=== PATIENT | female | born 1955 | race Hispanic/Latino ===

== ENCOUNTER 2016-04-21 14:38 | Outpatient (CLI) | payer BC ==
--- NOTE | 2016-04-08 14:17 | Mammography Report ---
BILATERAL DIGITAL SCREENING MAMMOGRAM with CAD: 04/07/16 09:15:00 CLINICAL: Routine screening. COMPARISON:09/24/14 FINDINGS: The breasts are heterogeneously dense, which may obscure small masses. An increased number of right circumscribed densities compared to the prior exam which require additional imaging. A left upper asymmetry requires additional imaging.No suspicious calcifications. IMPRESSION: Bilateral asymmetries requiring further workup. BI-RADS CATEGORY: 0 -- Additional Imaging Evaluation Required RECOMMENDATION: Recall for a left spot compression MLO view, left breast ultrasound if needed and right breast ultrasound. ACR BI-RADS MAMMOGRAPHIC CODES: 0 = Needs additional imaging evaluation; 1 = Negative; 2 = Benign; 3 = Probably benign; 4 = Suspicious; 5 = Malignant; 6 = Known biopsy-proven malignancy COMMENT: 1. Dense breast tissue, i.e., adenosis, fibrocystic changes, etc., may obscure an underlying neoplasm. 2. Approximately 10% of cancers are not detected with mammography. 3. A negative mammography report should not delay biopsy if a clinically suspicious mass is present. COMMENT: Patient follow-up letters are generated via our [employer] application.
--- NOTE | 2016-04-22 08:19 | Mammography Report ---
LEFT DIGITAL DIAGNOSTIC MAMMOGRAM and BILATERAL BREAST ULTRASOUND: 04/21/16 14:38:00 CLINICAL: Recall to evaluate asymmetries. COMPARISON:04/07/16 screening mammogram. FINDINGS: A lateralmedial and spot compression MLO view demonstrate satisfactory effacement of the previously described asymmetry. Ultrasound of the left breast (including all four quadrants and the retroareolar area) was performed and demonstrated a central retroareolar complex cyst versus solid mass which correlates with the mammographic asymmetry. It measures 1.4 x 0.9 x 1.4 cm. A benign bilobed cyst at 11 o'clock subareolar measures 1.4 x 0.5 x 1.3 cm and a benign subareolar cyst at 3 o'clock measures 1.8 x 0.8 x 1.7 cm. Ultrasound of the right breast (including all four quadrants and the retroareolar area) was performed and demonstrated too numerous to count benign cysts. A cyst at 9 o'clock 4 cm from the nipple measures 2.0 x 1.2 x 2.3 cm. A cyst at 12 o'clock 3 cm from the nipple measures 0.8 x 0.5-0.7 cm. A subareolar cyst at 11 o'clock measures 2.4 x 0.9 x 2.7 cm. No solid mass or shadowing of the right breast. IMPRESSION: Benign cysts of the right breast and a left retroareolar complex cyst versus solid mass. Recommend ultrasound guided left aspiration/biopsy. BI-RADS CATEGORY: 4A--Mildly Suspicious ACR BI-RADS MAMMOGRAPHIC CODES: 0 = Needs additional imaging evaluation; 1 = Negative; 2 = Benign; 3 = Probably benign; 4 = Suspicious; 5 = Malignant; 6 = Known biopsy-proven malignancy COMMENT: 1. Dense breast tissue, i.e., adenosis, fibrocystic changes, etc., may obscure an underlying neoplasm. 2. Approximately 10% of cancers are not detected with mammography. 3. A negative mammography report should not delay biopsy if a clinically suspicious mass is present. COMMENT: Patient follow-up letters are generated by our [employer] application.
== END 2016-04-21 14:39 | disposition home or self-care (01) ==
LOC: SPVWC 14:38
DX: Z12.31 Encounter for screening mammogram for malignant neoplasm of breast (principal); N60.01 Solitary cyst of right breast; N60.02 Solitary cyst of left breast
CPT/HCPCS: 76641; G0202; G0206; 77067

== ENCOUNTER 2016-05-05 08:40 | Outpatient (CLI) | payer BC ==
--- NOTE | 2016-05-05 10:28 | Mammography Report ---
LEFT DIGITAL DIAGNOSTIC MAMMOGRAM: 05/05/16 08:40:00 CLINICAL: For clip placement immediately status post aspiration of a complex cyst. COMPARISON:04/21/16 FINDINGS: A biopsy clip is now identified on both views and correlates with the location of the aspirated cyst. IMPRESSION: Concordant clip placement status post cyst aspiration .
--- NOTE | 2016-05-05 10:58 | Ultrasound Report ---
ULTRASOUND GUIDED ASPIRATION WITH CLIP PLACEMENT LEFT BREAST: 05/05/16 CLINICAL: Complex cyst versus solid retroareolar mass. COMPARISON: 04/21/16 FINDINGS: The procedure was explained to the patient and informed consent was obtained. Ultrasound demonstrated the previously described retroareolar lesion. The skin was cleansed with Betadine and anesthetized with 1% lidocaine. A 20-gauge needle was introduced into the complex cyst with ultrasound guidance. 3 cc of blood-tinged fluidwas removed and the lesion showed complete collapse. A hydro-de clip was placed at the site of the aspiration. The fluid was placed in Cytolyte and sent to the lab for analysis. The patient tolerated the procedure well and there were no apparent complications. IMPRESSION: Uncomplicated cyst aspiration left breast.
== END 2016-05-05 08:41 | disposition home or self-care (01) ==
LOC: SPVWC 08:40
DX: N60.02 Solitary cyst of left breast (principal)
CPT/HCPCS: 19000; 88112; A4648; G0206

== ENCOUNTER → 2017-09-27 | Outpatient (CLI) | payer OTHER ==
--- NOTE | 2017-09-28 12:40 | Mammography Report ---
BILATERAL DIGITAL SCREENING MAMMOGRAM with CAD : 09/27/17 10:55:00 CLINICAL: Routine screening.History of bilateral benign cysts and status post left benign cyst aspiration 05/05/16 COMPARISON:04/07/16 and 10/01/14 FINDINGS: The breasts are heterogeneously dense, which may obscure small masses.Bilateral circumscribed densities are consistent with cysts and are not significantly changed compared to prior exams. No mass, architectural distortion or suspicious calcifications. IMPRESSION: No mammographic evidence of malignancy. BI-RADS CATEGORY: 2 -- Benign RECOMMENDATION: Routine mammographic screening in one year. COMMENT: Patient follow-up letters are generated by our [employer] application.
== END | disposition home or self-care (01) ==
LOC: SPVWC 10:55
DX: Z12.31 Encounter for screening mammogram for malignant neoplasm of breast (principal)
CPT/HCPCS: 77067

== ENCOUNTER 2018-10-01 08:00 | Outpatient (CLI) | payer SELFPAY ==
--- NOTE | 2018-10-01 14:35 | Mammography Report ---
BILATERAL DIGITAL SCREENING MAMMOGRAM WITH CAD INDICATION: Routine screening mammography. Known bilateral cysts. TECHNIQUE: Digital bilateral 2D mammography was obtained in the craniocaudal and mediolateral obliq ue projections. This examination was interpreted with the benefit of Computer-Aided Detection analysi s. COMPARISON: May 28 2017 and 04/07/2016 FINDINGS: Breast Density: The breasts are heterogeneously dense, which may obscure small masses. No mass, architectural distortion or suspicious calcifications. Several bilateral circumscribed densi ties consistent with cysts. IMPRESSION:No mammographic evidence of malignancy. BI-RADS Category 2: Benign. No mammographic evidence of malignancy. Recommend routine screening ma mmography in one year. A "normal" or negative report should not discourage follow up or biopsy of a clinically significant f inding. A written summary of these findings will be mailed to the patient. The patient will be entered into a mammography reporting system which will generate a reminder letter for the patient's next appointmen t at the appropriate interval. The [employer] recommends yearly mammograms starting at age 40 and continuing as l idalmis as a woman is in good health. Breast MRI is recommended for women with an approximate 20-25% or greater lifetime risk of breast cancer, including women with a strong family history of breast or ova tricia cancer or who have been treated for Hodgkin's disease. Signer Name: Nithin Lewis MD Signed: 10/01/2018 2:31 PM Workstation Name: [id number]
== END 2018-10-01 08:01 | disposition home or self-care (01) ==
LOC: SPVWC 08:00
DX: Z12.31 Encounter for screening mammogram for malignant neoplasm of breast (principal)
CPT/HCPCS: 77067